=== PATIENT | female | born 1985 ===

== ENCOUNTER 2019-07-08 16:03 | Emergency (ER) | payer MEDICAID, OTHER ==
[2019-07-08 16:15] VITALS: BP 126/65; PULSE 106
--- NOTE | 2019-07-08 16:38 | CR ---
PROCEDURE INFORMATION: Exam: XR Sinus, Minimum of 3 Views, Complete Exam date and time: 07/08/2019 4:20 PM Age: 33 years old Clinical indication: Nasal congestion; Additional info: Maxillary and frontal pain/pressure TECHNIQUE: Imaging protocol: XR of the sinuses and paranasal structures, minimum of 3 views. Complete exam. COMPARISON: No relevant prior studies available. FINDINGS: Sinuses: Well aerated. No opacification. Bones/joints: No fracture. Soft tissues: Unremarkable. IMPRESSION: Unremarkable.
--- NOTE | 2019-07-08 16:54 | EDM.PDOC ---
Scribed by Latasha Kelly 07/08/19 9619 for Devan Adame MD ED HPI GENERAL MEDICAL PROBLEM - General Chief Complaint: ENT Problem Stated Complaint: infection Time Seen by Provider: 07/08/19 16:07 Source of Information: Reports: Patient, RN, RN Notes Reviewed History Limitations: Reports: No Limitations - History of Present Illness INITIAL COMMENTS - FREE TEXT/NARRATIVE: Patient presents to ER via POV with complaint of a broken tooth that feels like it is infected. This tooth has been treated for an infection twice in the past couple of months. She feels pressure in the sinuses and her ear is muffled. She also is concerned that there could be a tick inside her ear. She denies any fever or chills. She has no drainage from the ear or the nose. Onset: Gradual Duration: Getting Worse Location: Reports: Other (tooth) Quality: Reports: Ache Severity: Moderate Improves with: Reports: None Worsens with: Reports: None Associated Symptoms: Reports: No Other Symptoms Face/Facial Pain Score (Numeric/FACES): 7 - Related Data Allergies Allergy/AdvReac Type Severity Reaction Status Date / Time codeine Allergy Intermediate Itching Verified 07/08/19 16:15 acetaminophen Allergy Itching Verified 07/08/19 16:15 [From Tylenol-Codeine #3] hydrocodone Allergy Itching Verified 07/08/19 16:15 Home Meds: Home Meds Naproxen [Naprosyn] 500 mg PO Q12HR #14 tab 06/28/19 [Rx] Penicillin V Potassium 500 mg PO Q6HR #40 tab 06/28/19 [Rx] Past Medical History - Past Health History Medical/Surgical History: Denies Medical/Surgical History HEENT History: Reports: Other (See Below) Other HEENT History: hearing loss right side Cardiovascular History: Reports: None Respiratory History: Reports: Intubation, Previous Gastrointestinal History: Reports: None Genitourinary History: Reports: None 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: , Therapeutic Musculoskeletal History: Reports: Other (See Below) Neurological History: Reports: None Psychiatric History: Reports: Anxiety, Depression, Panic Attack, PTSD Endocrine/Metabolic History: Reports: None Insulin Pump Model and Dough Mixer: None Hematologic History: Reports: None Immunologic History: Reports: None Oncologic (Cancer) History: Reports: None Dermatologic History: Reports: None - Infectious Disease History Infectious Disease History: Reports: Chicken Pox - Past Surgical History Head Surgeries/Procedures: Reports: None Female Surgical History: Reports: D&C Other Musculoskeletal Surgeries/Procedures:: scoliosis Social & Family History - Family History Family Medical History: Noncontributory - Caffeine Use Caffeine Use: Reports: Coffee ED ROS ENT - Review of Systems Review Of Systems: Comprehensive ROS is negative, except as noted in HPI. ED EXAM, ENT - Physical Exam Exam: See Below Exam Limited By: No Limitations General Appearance: Alert, WD/WN, No Apparent Distress, Anxious Eye Exam: Bilateral Eye: Normal Inspection Ears: Normal TMs (Left), Other (Congenitally deformed right ear.) Nose: No Blood, Nasal Discharge (purulent on left), Injected Turbinates ( Inflammed nasal mucosa with a left nostril fisure and small erythematous acutely tender area at the 10 0'clock position (suspicious for MRSA)) Mouth/Throat: Normal Gums, Normal Lips, Normal Oropharynx, Other (Chronic dental decay with no acute inflammation or abscess) Head: Atraumatic Neck: Normal Inspection, Supple, Non-Tender, Full Range of Motion. No: Lymphadenopathy (L), Lymphadenopathy (R) Respiratory/Chest: No Respiratory Distress, Lungs Clear, Normal Breath Sounds, No Accessory Muscle Use, Chest Non-Tender Cardiovascular: Regular Rate, Rhythm, Tachycardia Neurological: Alert, Oriented, No Motor/Sensory Deficits Psychiatric: Anxious Skin: Warm, Dry, No Rash Course - Vital Signs Last Recorded V/S: Last Vital Signs Temp 98.5 F 07/08/19 16:10 Pulse 106 H 07/08/19 16:10 Resp 16 07/08/19 16:10 BP 126/65 07/08/19 16:10 Pulse Ox 99 07/08/19 16:10 - Radiology Interpretation Free Text/Narrative:: Sinus: Unremarkable. See rad report. Departure - Departure Time of Disposition: 16:51 Disposition: Home, Self-Care 01 Condition: Good Clinical Impression: Cellulitis of mucous membrane of nose, MRSA nasal colonization Inflamed nasal mucosa Qualifiers: Rhinitis type: acute Qualified Code(s): J00 - Acute nasopharyngitis [common cold] - Discharge Information *PRESCRIPTION DRUG MONITORING PROGRAM REVIEWED*: Not Applicable *COPY OF PRESCRIPTION DRUG MONITORING REPORT IN PATIENT [place]: Not Applicable Instructions: MRSA Infection, Self-Care, Adult Forms: ED Department Discharge Additional Instructions: Rx: Clindamycin 300mg Rx: Doxycycline 100mg Rx: Bactroban Ointment 2% Follow up in clinic in 7 to 10 days for recheck. Sepsis Event Note - Focused Exam Vital Signs: Vital Signs Temp Pulse Resp BP Pulse Ox 07/08/19 16:10 98.5 F 106 H 16 126/65 99 Date Exam was Performed: 07/08/19 Time Exam was Performed: 16:48 I have read and agree with the documentation that has been completed regarding this visit. By signing this record, I attest that the documentation was completed in my physical presence and is an accurate record of the encounter.
== END 2019-07-08 17:03 | disposition home or self-care (01) ==
LOC: DL.ED 16:03
DX: J00 Acute nasopharyngitis [common cold] (principal); J34.0 Abscess, furuncle and carbuncle of nose; A49.02 Methicillin resistant Staphylococcus aureus infection, unspecified site; Z88.5 Allergy status to narcotic agent; Z88.6 Allergy status to analgesic agent
CPT/HCPCS: 99283-25